=== PATIENT | female | born 1980 | race Caucasian/White ===

== ENCOUNTER 2020-12-08 09:01 | Emergency (ER) | payer BC ==
[~2020-12-08] VITALS: Ht 175.3 cm; Wt 66.3 kg
[2020-12-08 09:09] VITALS: BP 151/96
[2020-12-08] MEDS ORDERED: ONDANSETRON PF 4 MG/2 ML VIAL. ONE (09:39)
[2020-12-08] MEDS ORDERED: ONDANSETRON PF 4 MG/2 ML VIAL. IVP ONE (09:45)
[2020-12-08] MEDS ORDERED: IV NORMAL SALINE 1,000ML 1,000 ML IV ONE (09:45)
[2020-12-08 10:12] LABS: BASO % 0 % (0-3); EOS # 0.1 x10^3/uL (0.0-0.7); EOS % 1 % (0-3); HEMATOCRIT 40.3 % (36.0-47.0); HEMOGLOBIN 13.6 g/dL (12.0-15.5); LYMPH # 1.5 x10^3/uL (1.0-4.8); LYMPH % 20 % (24-48); MEAN CORPUSCULAR HEMOGLOBIN 32 pg (25-35); MEAN CORPUSCULAR HGB CONC 34 g/dL (31-37); MEAN CORPUSCULAR VOLUME 94 fL (79-100); MONO # 0.3 x10^3/uL (0.0-1.1); MONO % 4 % (0-9); NEUT # 5.5 x10^3uL (1.8-7.7); NEUT % 75 % (31-73); PLATELET COUNT 236 x10^3/uL (140-400); RED BLOOD COUNT 4.28 x10^6/uL (3.50-5.40); RED CELL DISTRIBUTION WIDTH 12.9 % (11.5-14.5); WHITE BLOOD COUNT 7.4 x10^3/uL (4.0-11.0)
[2020-12-08 10:24] LABS: CALCIUM 8.7 mg/dL (8.5-10.1); CREATININE 0.9 mg/dL (0.6-1.0); POTASSIUM 4.1 mmol/L (3.5-5.1)
[2020-12-08 10:31] LABS: BACTERIA,URINE 0 /HPF (0-FEW); BILIRUBIN,URINE NEG (NEG); CLARITY,URINE CLEAR; COLOR,URINE YELLOW; GLUCOSE,URINE NEG (NEG); NITRITE,URINE NEG (NEG); RBC,URINE OCC /HPF (0-2); SQUAMOUS EPITHELIAL CELL,UR FEW /LPF; UROBILINOGEN,URINE 0.2 mg/dL (0.2 mg/dL); WBC,URINE OCC /HPF (0-4)
[2020-12-08 10:32] LABS: U PREG PATIENT NEGATIVE (NEG)
[2020-12-08 10:37] LABS: ALBUMIN 4.2 g/dL (3.4-5.0); ALBUMIN/GLOBULIN RATIO 1.4 (1.0-1.7); TOTAL BILIRUBIN 0.6 mg/dL (0.2-1.0); TOTAL PROTEIN 7.1 g/dL (6.4-8.2)
--- NOTE | 2020-12-08 10:41 | PHYS DOC ---
Past History Past Surgical History: Tonsillectomy (COLBY MONTEJO APRN) Alcohol Use: None (COLBY MONTEJO APRN) General Adult EDM: Chief Complaint: ABDOMINAL PAIN HPI: HPI: Patient is a 40-year-old female being seen in the ER today for right lower quadrant pain that radiates to her right flank that started yesterday. She describes the pain as a pressure pain. She rates it 10 out of 10. Patient is also reporting nausea and vomiting. She denies dysuria, hematuria, diarrhea, fevers, blood in stool or vomit. She has no history of kidney stones and no significant medical history. (COLBY MONTEJO APRN) Review of Systems: Review of Systems: 14 body systems of the review of systems have been reviewed. See HPI for pertinent positive and negative responses, otherwise all other systems are negative, nonpertinent or noncontributory (COLBY MONTEJO APRN) Current Medications: Current Meds: Current Medications Medications (Trade) Dose Ordered Sig/Dutch Start Time Stop Time Status Last Admin Dose Admin Fentanyl Citrate (Fentanyl 2ml Vial) 50 mcg 1X ONCE 12/08/20 10:30 12/08/20 10:31 DC 12/08/20 10:34 50 MCG Iohexol (Omnipaque 300 Mg/ml) 75 ml 1X ONCE 12/08/20 10:45 12/08/20 10:46 UNV Ondansetron HCl (Zofran) 4 mg 1X ONCE 12/08/20 09:45 12/08/20 09:47 DC 12/08/20 10:34 4 MG Sodium Chloride 1,000 ml @ 1,000 mls/hr 1X ONCE 12/08/20 09:45 12/08/20 10:44 12/08/20 10:34 1,000 MLS/HR (COLBY MONTEJO APRN) Allergies: Allergies: Allergies Coded Allergies Type Severity Reaction Last Updated Verified No Known Drug Allergies 12/08/20 No (COLBY MONTEJO APRN) Physical Exam: PE: Constitutional: Well developed, well nourished, no acute distress, non-toxic appearance. [] HENT: Normocephalic, atraumatic, bilateral external ears normal, oropharynx moist, no oral exudates, nose normal. [] Eyes: PERRL, EOMI, conjunctiva normal, no discharge. [] Neck: Normal range of motion, no stridor Cardiovascular:Heart rate regular rhythm, no murmur [] Lungs & Thorax: Bilateral breath sounds clear to auscultation [] Abdomen: Bowel sounds normal, soft, no masses, no pulsatile masses, right lower quadrant pain with palpation, no rebound tenderness. [] Skin: Warm, dry, no erythema, no rash. [] Back: No tenderness, no CVA tenderness. [] Extremities: No tenderness, no cyanosis, no clubbing, ROM intact, no edema. [] Neurologic: Alert and oriented X 3, normal motor function, normal sensory function, no focal deficits noted. [] Psychologic: Affect normal, judgement normal, mood normal. [] (COLBY MONTEJO APRN) Current Patient Data: Labs: Laboratory Tests Test 12/08/20 09:40 White Blood Count 7.4 x10^3/uL Red Blood Count 4.28 x10^6/uL Hemoglobin 13.6 g/dL Hematocrit 40.3 % Mean Corpuscular Volume 94 fL Mean Corpuscular Hemoglobin 32 pg Mean Corpuscular Hemoglobin Concent 34 g/dL Red Cell Distribution Width 12.9 % Platelet Count 236 x10^3/uL Neutrophils (%) (Auto) 75 % Lymphocytes (%) (Auto) 20 % Monocytes (%) (Auto) 4 % Eosinophils (%) (Auto) 1 % Basophils (%) (Auto) 0 % Neutrophils # (Auto) 5.5 x10^3uL Lymphocytes # (Auto) 1.5 x10^3/uL Monocytes # (Auto) 0.3 x10^3/uL Eosinophils # (Auto) 0.1 x10^3/uL Basophils # (Auto) 0.0 x10^3/uL Urine Collection Type Unknown Urine Color Yellow Urine Clarity Clear Urine pH 5.0 Urine Specific [place] >=1.030 Urine Protein Neg Urine Glucose (UA) Neg mg/dL Urine Ketones (Stick) 15 mg/dL Urine Blood Large Urine Nitrite Neg Urine Bilirubin Neg Urine Urobilinogen Dipstick 0.2 mg/dL Urine Leukocyte Esterase Neg Urine RBC Occ /HPF Urine WBC Occ /HPF Urine Squamous Epithelial Cells Few /LPF Urine Bacteria 0 /HPF Urine Mucus Slight /LPF Urine Test Negative Sodium Level 141 mmol/L Potassium Level 4.1 mmol/L Chloride Level 105 mmol/L Carbon Dioxide Level 25 mmol/L Anion Gap 11 Blood Urea Nitrogen 11 mg/dL Creatinine 0.9 mg/dL Estimated GFR (Cockcroft-Gault) 69.0 BUN/Creatinine Ratio 12 Glucose Level 124 mg/dL Calcium Level 8.7 mg/dL Total Bilirubin 0.6 mg/dL Aspartate Amino Transf (AST/SGOT) 13 U/L Alanine Aminotransferase (ALT/SGPT) 20 U/L Alkaline Phosphatase 48 U/L Total Protein 7.1 g/dL Albumin 4.2 g/dL Albumin/Globulin Ratio 1.4 Current Medications Medications (Trade) Dose Ordered Sig/Dutch Route PRN Reason Start Time Stop Time Status Last Admin Dose Admin Ondansetron HCl (Zofran) 4 mg STK-MED ONCE .ROUTE 12/08/20 09:39 12/08/20 09:39 DC Ondansetron HCl (Zofran) 4 mg 1X ONCE IVP 12/08/20 09:45 12/08/20 09:47 DC 12/08/20 10:34 Sodium Chloride 1,000 ml @ 1,000 mls/hr 1X ONCE IV 12/08/20 09:45 12/08/20 10:44 DC 12/08/20 10:34 Fentanyl Citrate (Fentanyl 2ml Vial) 50 mcg 1X ONCE IVP 12/08/20 10:30 12/08/20 10:31 DC 12/08/20 10:34 Iohexol (Omnipaque 300 Mg/ml) 75 ml 1X ONCE IV 12/08/20 10:45 12/08/20 10:47 DC 12/08/20 11:01 Fentanyl Citrate (Fentanyl 2ml Vial) 50 mcg 1X ONCE IVP 12/08/20 11:00 12/08/20 11:03 DC 12/08/20 11:00 Laboratory Tests Test 12/08/20 09:40 White Blood Count 7.4 x10^3/uL (4.0-11.0) Red Blood Count 4.28 x10^6/uL (3.50-5.40) Hemoglobin 13.6 g/dL (12.0-15.5) Hematocrit 40.3 % (36.0-47.0) Mean Corpuscular Volume 94 fL (79-100) Mean Corpuscular Hemoglobin 32 pg (25-35) Mean Corpuscular Hemoglobin Concent 34 g/dL (31-37) Red Cell Distribution Width 12.9 % (11.5-14.5) Platelet Count 236 x10^3/uL (140-400) Neutrophils (%) (Auto) 75 % (31-73) H Lymphocytes (%) (Auto) 20 % (24-48) L Monocytes (%) (Auto) 4 % (0-9) Eosinophils (%) (Auto) 1 % (0-3) Basophils (%) (Auto) 0 % (0-3) Neutrophils # (Auto) 5.5 x10^3uL (1.8-7.7) Lymphocytes # (Auto) 1.5 x10^3/uL (1.0-4.8) Monocytes # (Auto) 0.3 x10^3/uL (0.0-1.1) Eosinophils # (Auto) 0.1 x10^3/uL (0.0-0.7) Basophils # (Auto) 0.0 x10^3/uL (0.0-0.2) Urine Collection Type Unknown Urine Color Yellow Urine Clarity Clear Urine pH 5.0 Urine Specific [place] >=1.030 Urine Protein Neg (NEG-TRACE) Urine Glucose (UA) Neg mg/dL (NEG) Urine Ketones (Stick) 15 mg/dL (NEG) Urine Blood Large (NEG) Urine Nitrite Neg (NEG) Urine Bilirubin Neg (NEG) Urine Urobilinogen Dipstick 0.2 mg/dL (0.2 mg/dL) Urine Leukocyte Esterase Neg (NEG) Urine RBC Occ /HPF (0-2) Urine WBC Occ /HPF (0-4) Urine Squamous Epithelial Cells Few /LPF Urine Bacteria 0 /HPF (0-FEW) Urine Mucus Slight /LPF Urine Test Negative (NEG) Sodium Level 141 mmol/L (136-145) Potassium Level 4.1 mmol/L (3.5-5.1) Chloride Level 105 mmol/L (98-107) Carbon Dioxide Level 25 mmol/L (21-32) Anion Gap 11 (6-14) Blood Urea Nitrogen 11 mg/dL (7-20) Creatinine 0.9 mg/dL (0.6-1.0) Estimated GFR (Cockcroft-Gault) 69.0 BUN/Creatinine Ratio 12 (6-20) Glucose Level 124 mg/dL (70-99) H Calcium Level 8.7 mg/dL (8.5-10.1) Total Bilirubin 0.6 mg/dL (0.2-1.0) Aspartate Amino Transferase (AST) 13 U/L (15-37) L Alanine Aminotransferase (ALT) 20 U/L (14-59) Alkaline Phosphatase 48 U/L (46-116) Total Protein 7.1 g/dL (6.4-8.2) Albumin 4.2 g/dL (3.4-5.0) Albumin/Globulin Ratio 1.4 (1.0-1.7) Vital Signs: Vital Signs Date Time Temp Pulse Resp B/P (MAP) Pulse Ox O2 Delivery O2 Flow Rate FiO2 12/08/20 10:34 16 96 12/08/20 09:09 98.3 91 151/96 Room Air (COLBY MONTEJO APRN) EKG: EKG: [] (COLBY MONTEJO APRN) Radiology/Procedures: Radiology/Procedures: PROCEDURE: CT ABD PELV W/ IV CONTRST ONLY Axial CT of the abdomen and pelvis were obtained after the administration of 75 cc Isovue 370. Coronal and sagittal reformats are also available. Exposure: One or more of the following individualized dose reduction techniques were utilized for this examination: 1. Automated exposure control 2. Adjustment of the mA and/or kV according to patient size 3. Use of iterative reconstruction technique Indication: Severe right lower quadrant pain and back pain, fever.. Comparison: None. Findings: Lung bases are clear. The heart is unenlarged. Liver, gallbladder, spleen, adrenals and pancreas are unremarkable in appearance. Left kidney is normal in appearance. There is a punctate stone in the distal right ureter at the ureterovesicular junction. There is mild proximal hydronephrosis and hydroureter. There is minimal differential enhancement of the kidneys. Stomach, small and large bowel are nondistended. No evidence pathologic wall thickening. Appendix is not clearly seen. There is enlargement the bilateral ovaries. There are multiple dilated periuterine veins. No free air-fluid. Radiologically significant retroperitoneal or mesenteric lymphadenopathy is identified. Abdominal aorta is nonaneurysmal. Portal, superior mesenteric and splenic veins are normal. Bony structures are unremarkable. IMPRESSION: 1. Small calculus seen at the ureterovesicular junction with mild proximal hydronephrosis and hydroureter. Mild difference in enhancement of kidney may suggest slightly impaired renal function on the right. 2. Multiple dilated periuterine veins suggest pelvic venous congestion syndrome. Correlate with clinical symptoms. 3. Appendix not clearly identified, however, no significant inflammation is identified in the right lower quadrant. Electronically signed by: Neto Byrd MD (12/08/2020 11:19 AM) [id number] DICTATED AND SIGNED BY: NETO BYRD MD DATE: 12/08/20 1116 CC: JACK SCHMITZ DO; COLBY MONTEJO APRN; PCP,NO ~MTH0 0[] (COLBY MONTEJO APRN) Heart Score: C/O Chest Pain: No Risk Factors: Risk Factors: DM, Current or recent (<one month) smoker, HTN, HLP, family history of CAD, obesity. Risk Scores: Score 0 - 3: 2.5% MACE over next 6 weeks - Discharge Home Score 4 - 6: 20.3% MACE over next 6 weeks - Admit for Clinical Observation Score 7 - 10: 72.7% MACE over next 6 weeks - Early Invasive Strategies (COLBY MONTEJO APRN) Course & Med Decision Making: Course & Med Decision Making Pertinent Labs and Imaging studies reviewed. (See chart for details) Patient is a 40-year-old female being seen in the ER for right lower quadrant pain and right flank pain. Work-up in the ER consisted of blood work, CT scan of abdomen, UA. Patient was treated with nausea, pain medication, and fluids. CBC unremarkable, CMP unremarkable with normal renal function, UA unremarkable. No evidence suggesting pyelonephritis or urinary tract infection, no acute kidney injury present with significant hydronephrosis.CT scan shows less than 5 mm stone in the right side with mild hydronephrosis persistent hydroureter. Stone was less than 6 mm in the past spontaneously, this was discussed with patient and there agreeable to trial of stone passage at home. Patient treated with Toradol and Flomax. Patient is hemodynamically stable at the time of disposition. Pain is controlled at this time. Patient is hemodynamically stable and afebrile currently. Plan to discharge from the emergency department. Advised to take medications as instructed and drink plenty of fluids. Return precautions discussed with the patient who understands all instructions and is comfortable with the plan of care. Patient be discharged home with Flomax and Zofran and advised to take NSAIDs, prescribed pain medications and strain urine. I discussed with patient all findings and diagnostic testing as well as the need to follow-up with PCP for further evaluation and treatment or return to the ER if any new or worsening symptoms. Strict return precautions were also discussed at length. Patient voiced understanding and agreement with the plan. (COLBY MONTEJO APRN) Course & Med Decision Making I oversaw on the above date of service of this patient. This patient was evaluated, examined, treated, and dispositioned from the emergency department by the mid-level practitioner. I have reviewed note and agree to plan of care and disposition. Electronically signed, Jack Schmitz DO (JACK SCHMITZ DO) Dragon Disclaimer: [place] Disclaimer: This electronic medical record was generated, in whole or in part, using a voice recognition dictation system. (COLBY MONTEJO APRN) Departure Departure: Impression: Primary Impression: Kidney stone Disposition: HOME / SELF CARE / HOMELESS Condition: GOOD Referrals: PCP,NO (PCP) Patient Instructions: Diet for Kidney Stones, Kidney Stones Additional Instructions: You were seen in the ER today for right lower abdomen and flank pain. You have a kidney stone that will hopefully pass. We are writing a prescription for pain medication and a medication to help dilate the ureter so that you can pass the stone more easily. He should strain your urine and look for the stone. We are also discharging you home with a medication for nausea called Ysabelfran. You should take ibuprofen for mild pain and you were prescribed [place] for severe pain. This medication is hydrocodone and Tylenol combination tablet. Do not take any additional Tylenol with this medication. This medication may cause drowsiness so do not take when you need to be alert and do not take with alcohol. You will need to follow-up with urologist as soon as possible. You should return to the ER if you have worsening pain, fever, continued bloody urine, lightheadedness, shortness of breath, chest pain or any new or concerning symptoms. EMERGENCY DEPARTMENT GENERAL DISCHARGE INSTRUCTIONS Thank you for coming to [facility] (ED) today and trusting us with you care. We trust that you had a positivie experience in our Emergency Department. If you wish to speak to the department management, you may call the director at [phone]. YOUR FOLLOW UP INSTRUCTIONS ARE FOLLOWS: 1. Do you have a private Doctor? If you do not have a private doctor, please ask for a resource list of physicians or clinics that may be able to assist you with follow up care. 2. The Emergency Physician has interpreted your x-rays. The X-Ray specialist will also review them. If there is a change in the findings, you will be notified in 48 hours when at all possible. 3. A lab test or culture has been done, your results will be reviewed and you will be notified if you need a change in treatment. ADDITIONAL INSTRUCTIONS AND INFORMATION: 1. Your care today has been supervised by a physician who is specially trained in emergency care. Many problems require more than one evaluation for a complete diagnosis and treatment. We recommend that you schedule your follow up appointment as recommended to ensure complete treatment of you illness or injury. If you are unable to obtain follow up care and continue to have a problem, or if your condition worsens, we recommend that you return to the ED. 2. We are not able to safely determine your condition over the phone nor are we able to give sound medical advice over the phone. For these safety reasons, if you call for medical advice we will ask you to come to the ED for further evaluation. 3. If you have any questions regarding these discharge instructions please call the ED at [phone]. SAFETY INFORMATION: In the interest of safety, wellness, and injury prevention; we encourage you to wear your sealbelt, if you smoke; quite smoking, and we encourage family to use a protective helmet for bicycling and other sporting events that present an increased risk for head injury. IF YOUR SYMPTOMS WORSEN OR NEW SYMPTOMS DEVELOP, OR YOU HAVE CONCERNS ABOUT YOUR CONDITION; OR IF YOUR CONDITION WORSENS WHILE YOU ARE WAITING FOR YOUR FOLLOW UP APPOINTMENT; EITHER CONTACT YOUR PRIMARY CARE DOCTOR, THE PHYSICIAN WHOSE NAME AND NUMBER YOU WERE GIVEN, OR RETURN TO THE ED IMMEDIATELY. Scripts Hydrocodone Bit/Acetaminophen (HYDROCODONE-APAP 5-325 ) 1 Each Tablet 1 TAB PO PRN Q6HRS PRN for PAIN for 2 Days, #8 TAB 0 Refills Prov: COLBY MONTEJO APRN 12/08/20 Ondansetron Hcl (ZOFRAN) 4 Mg Tablet 4 MG PO TID PRN PRN for NAUSEA for 7 Days, #9 TAB 0 Refills Prov: COLBY MONTEJO APRN 12/08/20 Tamsulosin Hcl (FLOMAX) 0.4 Mg Cap.er.24h 1 CAP PO QHS for kidney stone for 14 Days, #14 CAP 0 Refills Prov: COLBY MONTEJO APRN 12/08/20 COLBY MONTEJO APRN Dec 08, 2020 10:41 JACK SCHMITZ DO Dec 12, 2020 13:51
[2020-12-08] MEDS ORDERED: IOHEXOL 300 MG/ML 75 ML VIAL. IV ONE (10:45)
--- NOTE | 2020-12-08 11:21 | RAD ---
Axial CT of the abdomen and pelvis were obtained after the administration of 75 cc Isovue 370. Wilder l and sagittal reformats are also available. Exposure: One or more of the following individualized dose reduction techniques were utilized for thi s examination: 1. Automated exposure control 2. Adjustment of the mA and/or kV according to patient size 3. Use of iterative reconstruction technique Indication: Severe right lower quadrant pain and back pain, fever.. Comparison: None. Findings: Lung bases are clear. The heart is unenlarged. Liver, gallbladder, spleen, adrenals and pancreas are unremarkable in appearance. Left kidney is normal in appearance. There is a punctate stone in the distal right ureter at the uret erovesicular junction. There is mild proximal hydronephrosis and hydroureter. There is minimal differ ential enhancement of the kidneys. Stomach, small and large bowel are nondistended. No evidence pathologic wall thickening. Appendix is not clearly seen. There is enlargement the bilateral ovaries. There are multiple dilated periuterine veins. No free air-fluid. Radiologically significant retroperitoneal or mesenteric lymphadenopathy is identi fied. Abdominal aorta is nonaneurysmal. Portal, superior mesenteric and splenic veins are normal. Bony stru ctures are unremarkable. IMPRESSION: 1. Small calculus seen at the ureterovesicular junction with mild proximal hydronephrosis and hydrour eter. Mild difference in enhancement of kidney may suggest slightly impaired renal function on the ri ght. 2. Multiple dilated periuterine veins suggest pelvic venous congestion syndrome. Correlate with clini ardha symptoms. 3. Appendix not clearly identified, however, no significant inflammation is identified in the right l ower quadrant. Electronically signed by: Neto Byrd MD (12/08/2020 11:19 AM) [id number]
[2020-12-08] MEDS ORDERED: ONDA4TAB7 PO (11:39)
[2020-12-08] MEDS ORDERED: TAMS0.4C97 PO (11:39)
[2020-12-08] MEDS ORDERED: HYDR-2155 PO (11:40)
[2020-12-08] MEDS ORDERED: TAMSULOSIN 0.4 MG CAP.ER.24H. PO ONE (11:45)
[2020-12-08] MEDS ORDERED: KETOROLAC 15 MG/ML VIAL. IVP ONE (11:45)
[2020-12-08] MEDS ORDERED: HYDROcodone/APAP 5/325MG 1 TAB TABLET PO ONE (12:00)
== END 2020-12-08 12:36 | disposition home or self-care (01) ==
LOC: ER 09:01
DX: N13.2 Hydronephrosis with renal and ureteral calculous obstruction (principal)
CPT/HCPCS: 36415; 74177; 80053; 81001; 81025; 85025; 96361; 96374; 96375; 99285; J1885; J2405; J3010; J7030; Q9967